=== PATIENT | female | born 2000 | race Caucasian/White ===

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

== ENCOUNTER 2019-01-10 00:46 | Emergency (ER) | payer OTHER ==
[2019-01-10] MEDS ORDERED: ONDANSETRON 4 MG/2 ML VIAL IVP ONE (00:49)
[2019-01-10] MEDS ORDERED: NS 1,000 ML IV ONE (00:49)
[2019-01-10] MEDS ORDERED: ONDANSETRON 4 MG/2 ML VIAL ONE (00:49)
--- NOTE | 2019-01-10 00:49 | EDPHY ---
H & P Time Seen by Provider: 01/10/19 00:48 HPI/ROS: HPI CHIEF COMPLAINT: Alcohol Intoxication HISTORY OF PRESENT ILLNESS: 18-year-old female presents emergency room acute alcohol intoxication. Patient states she had a large amount of alcohol tonight a [employer]. She was contacted by EMS tonight for acute alcohol intoxication. Unable to walk and vomiting. She arrives to the emergency room highly intoxicated with alcohol. Denies trauma or co ingestion. EMS reports normal blood glucose of 118. Past Medical History: No medical history Past Surgical History: No surgical history Social History: Alcohol intoxication. [employer] student. Family History: Noncontributory ROS REVIEW OF SYSTEMS: 10 Systems were reviewed and negative with the exception of the elements mentioned in the history of present illness. Exam Constitutional Intoxicated, triage nursing summary reviewed, vital signs reviewed, Sleepy, smells of alcohol Eyes normal conjunctivae and sclera, horizontal beating nystagmus consistent acute alcohol intoxication, otherwise pupils equal and react to light HENT normal inspection, atraumatic, moist mucus membranes, no epistaxis, neck supple/ no meningismus, no raccoon eyes. Respiratory clear to auscultation bilaterally, normal breath sounds, no respiratory distress, no wheezing. Cardiovascular rate normal, regular rhythm, no murmur, no edema, distal pulses normal. Gastrointestinal soft, non-tender, no rebound, no guarding, normal bowel sounds, no distension, no pulsatile mass. Genitourinary no CVA tenderness. Musculoskeletal no midline vertebral tenderness, full range of motion, no calf swelling, no tenderness of extremities, no meningismus, good pulses, neurovascularly intact. Skin pink, warm, & dry, no rash, skin atraumatic. Neurologic sleepy, intoxicated with alcohol,, alert and oriented x 3, AAOx3, moves all 4 extremities equally, motor intact, sensory intact, CN II-XII intact , , normal vision, normal speech. Psychiatric normal mood/affect. Heme/Lymph/Immune no lymphadenopathy. Differential Diagnosis: Includes but is not limited to in a particular order acute alcohol intoxication, alcohol abuse, dehydration, electrolyte abnormality , nausea vomiting from acute alcohol intoxication Medical Decision Making: Plan for this patient IV establishment IV fluid bolus , basic labs, alcohol level, Zofran for nausea monitor for worsening condition monitor for sobriety. Re-evaluation: Serum alcohol level 298 upon arrival at 1230am 0625AM: Patient this time is ambulatory without any difficulty. Clinically sober and safe for discharge. Patient was monitor closely for 6 hr. 0718: Patient ambulatory. Much more sober now. Answer questions appropriately. She will need to go to detox. Source: Patient, EMS Exam Limitations: Intoxication - Medical/Surgical History Other PMH: denies - Social History Smoking Status: Never smoked Constitutional: Initial Vital Signs Temperature (C) 35.9 C L 01/10/19 00:54 Heart Rate 104 H 01/10/19 00:54 Respiratory Rate 20 01/10/19 00:54 Blood Pressure 127/85 H 01/10/19 00:54 O2 Sat (%) 96 01/10/19 00:54 O2 Delivery Mode Nasal Cannula O2 (L/minute) 2 Allergies/Adverse Reactions: No Known Allergies Allergy (Unverified 01/10/19 00:53) Home Medications: Medication Instructions Recorded NK [No Known Home Meds] 05/28/18 Medical Decision Making - Data Points Laboratory Results: Laboratory Results 01/10/19 01:03 01/10/19 01:03 01/10/19 01/10/19 01:03 01:03 WBC 11.97 10^3/uL H 10^3/uL (3.80-9.50) RBC 4.81 10^6/uL 10^6/uL (4.18-5.33) Hgb 14.8 g/dL g/dL (12.6-16.3) Hct 43.1 % % (38.0-47.0) MCV 89.6 fL fL (81.5-99.8) MCH 30.8 pg pg (27.9-34.1) MCHC 34.3 g/dL g/dL (32.4-36.7) RDW 12.0 % % (11.5-15.2) Plt Count 331 10^3/uL 10^3/uL (150-400) MPV 9.1 fL fL (8.7-11.7) Neut % (Auto) 35.8 % L % (39.3-74.2) Lymph % (Auto) 53.9 % H % (15.0-45.0) [place] % (Auto) 8.0 % % (4.5-13.0) Eos % (Auto) 1.3 % % (0.6-7.6) Baso % (Auto) 0.7 % % (0.3-1.7) Nucleat RBC Rel Count 0.0 % % (0.0-0.2) Absolute Neuts (auto) 4.29 10^3/uL 10^3/uL (1.70-6.50) Absolute Lymphs (auto) 6.45 10^3/uL H 10^3/uL (1.00-3.00) Absolute Monos (auto) 0.96 10^3/uL H 10^3/uL (0.30-0.80) Absolute Eos (auto) 0.16 10^3/uL 10^3/uL (0.03-0.40) Absolute Basos (auto) 0.08 10^3/uL 10^3/uL (0.02-0.10) Absolute Nucleated RBC 0.00 10^3/uL 10^3/uL (0-0.01) Immature Gran % 0.3 % % (0.0-1.1) Immature Gran # 0.04 10^3/uL 10^3/uL (0.00-0.10) RBC/WBC/PLT Morphology TNP Platelet Estimate TNP Sodium 146 mEq/L H mEq/L (135-145) Potassium 3.9 mEq/L mEq/L (3.5-5.2) Chloride 111 mEq/L H mEq/L (97-110) Carbon Dioxide 19 mEq/l L mEq/l (22-31) Anion Gap 16 mEq/L H mEq/L (6-14) BUN 9 mg/dL mg/dL (7-23) Creatinine 0.7 mg/dL mg/dL (0.6-1.0) Estimated GFR > 60 Glucose 90 mg/dL mg/dL (70-100) Calcium 9.3 mg/dL mg/dL (8.5-10.4) Ethyl Alcohol 298 mg/dL H mg/dL (0-10) Medications Given: Discontinued Medications Sodium Chloride (Ns) 1,000 mls @ 0 mls/hr IV EDNOW ONE; Wide Open PRN Reason: Protocol Stop: 01/10/19 00:50 Last Admin: 01/10/19 00:53 Dose: 1,000 mls Ondansetron HCl (Zofran) 4 mg IVP EDNOW ONE Stop: 01/10/19 00:50 Last Admin: 01/10/19 00:53 Dose: 4 mg Promethazine HCl (Phenergan) 6.25 mg IVP EDNOW ONE Stop: 01/10/19 01:33 Last Admin: 01/10/19 01:33 Dose: 6.25 mg Departure - Departure Disposition: Home, Routine, Self-Care Clinical Impression: Alcohol intoxication Condition: Good Instructions: Alcohol Intoxication (ED), Abuse of Alcohol (ED) Additional Instructions: 1. Please stop drinking alcohol. Referrals: Patient,NotPresent [Unknown] - As per Instructions
[2019-01-10 01:15] LABS: PLATELET COUNT 331 10^3/uL (150-400)
[2019-01-10] MEDS ORDERED: PROMETHAZINE HCL 25 MG/ML INJ ONE (01:26)
[2019-01-10] MEDS ORDERED: PROMETHAZINE HCL 25 MG/ML INJ IVP ONE (01:32)
[2019-01-10 07:21] VITALS: BP 103/64
== END 2019-01-10 07:20 | disposition home or self-care (01) ==
LOC: EDUNIT#
DX: F10.920 Alcohol use, unspecified with intoxication, uncomplicated (principal); E86.9 Volume depletion, unspecified
CPT/HCPCS: 96374; G0480; J2405; J2550